=== PATIENT | female | born 1975 | race Caucasian/White ===

== ENCOUNTER 2016-12-13 22:49 | Emergency (ER) | payer SELFPAY ==
[~2016-12-13] VITALS: Wt 82.0 kg
[2016-12-14] MEDS ORDERED: ACETAMINOPHEN 500 MG TAB PO STA (00:21)
--- NOTE | 2016-12-14 01:30 | RADRPT ---
PROCEDURE: Obstetrical ultrasound, limited. CLINICAL INDICATION: Pelvic pain. TECHNIQUE: Multiple sonographic images of the pelvis were obtained using transabdominal technique . Images were obtained with hernandez scale and color Doppler. The images were reviewed on a PACS works tation. COMPARISON: No prior studies are available for comparison. FINDINGS: There is a single living intrauterine gestation with the fetus in a breech presentation. hear t tones of 154 beats per minute are identified. The placenta is anterior in location, grade 0. The re is normal amniotic fluid volume with the maximum vertical pocket measuring 4.1 cm. There is no e vidence of placenta previa or abruption. Measurements were made in order to determine age. The results are as follows: BPD =3.65 cm HC =13.20 cm AC =11.86 cm FL =2.32 cm. Estimated gestational age of approximately 17 weeks and 1 day. The estimated date of delivery is 05/23/2017. The EFW = 186 +/- 28 grams. Estimated weight percentage equals 68.5%. IMPRESSION: Single viable intrauterine gestation of approximately 17 weeks and 1 day, with an ultrasound ADDISON of 05/23/2017. .Mike Peña MD, MD Date Time Electronically viewed and signed by .Mike Peña MD, MD on 12/14/2016 01:30 .T/
[2016-12-14] MEDS ORDERED: TYL500 PO (01:51)
--- NOTE | 2016-12-14 01:55 | ERD ---
ER Documentation Chief Complaint Date/Time DATE: 12/14/16 TIME: 01:53 Chief Complaint LEFT SIDED TOOTH PAIN X1 WEEK/CURRENTLY 16WKS PREG HPI This is a 41-year-old female presents to the ER with left-sided tooth pain for the last week. Patient states that pain is pulsating in nature. She denies any facial pain, swelling, redness. She denies any fevers or chills. Patient is currently 16 weeks and is aware that because of the pain skin going to early labor. Patient states that she does have some pelvic pain however denies any vaginal bleeding. She denies any urinary frequency or dysuria. ROS 12 point review of systems was done, all negative except per HPI. Medications Home Meds Active Scripts Acetaminophen* (Tylenol*) 500 Mg Tab, 1000 MG PO Q8H Y for PAIN AND OR ELEVATED TEMP for 3 Days, TAB Prov:HELENA WHITEHEAD Knig 12/14/16 PMhx/Soc Hx Alcohol Use: No Hx Substance Use: No Hx Tobacco Use: No Smoking Status: Never smoker Physical Exam Vitals Vital Signs Date Time Temp Pulse Resp B/P Pulse Ox O2 Delivery O2 Flow Rate FiO2 12/13/16 23:00 97.9 92 18 125/74 98 Physical Exam GENERAL: The patient is well developed and appropriate for usual state of health , in no apparent distress. HEENT: Atraumatic. Patient has multiple dental caries. CHEST: Clear to auscultation bilaterally. There are no rales, wheezes or rhonchi. HEART: Regular rate and rhythm. No murmurs, clicks, rubs or gallops. NEURO: Alert and oriented. Results 24 hrs Current Medications Medications (Trade) Dose Ordered Sig/Bartolome Route PRN Reason Start Time Stop Time Status Last Admin Dose Admin Acetaminophen (Tylenol Tab) 1,000 mg ONCE STAT PO 12/14/16 00:21 12/14/16 00:24 DC 12/14/16 00:48 Procedures/MDM This is a 41-year-old female presents here with dental pain. At this time suspicion for dental abscess, Ricky's angina, deep space infection is low. Patient is afebrile and well-appearing. Patient will be sent home with Tylenol. She was told to follow-up with her dentist as soon as possible. I medical decision making shared with the patient she understands and agrees with plan Departure Diagnosis: Primary Impression: Pain, dental Condition: Stable Patient Instructions: Dental Pain Additional Instructions: Llame al doctor MAANA y martha vivienne GREGOR PARA DENTRO DE 1-2 HATCH.Dgale a la secretaria que nosotros le instruimos hacer esta gregor.Avise o llame si mock condicin se empeora antes de la gregor. Regresa aqui si peor o no mejor. HELENA WHITEHEAD Dec 14, 2016 01:55
== END 2016-12-14 02:20 | disposition left against medical advice (07) ==
LOC: FTE 22:49 → E/R 12-14 02:20
DX: O99.612 Diseases of the digestive system complicating pregnancy, second trimester (principal); K08.89 Other specified disorders of teeth and supporting structures; Z3A.17 17 weeks gestation of pregnancy
CPT/HCPCS: 76805

== ENCOUNTER 2017-05-25 07:54 | Inpatient (IN) | payer MEDICAID ==
[~2017-05-25] VITALS: Ht 147.3 cm; Wt 86.1 kg
[~2017-05-25 07:54] MED LIST: TYL500 PO
[2017-05-25] MEDS ORDERED: FER325 PO (08:10)
[2017-05-25] MEDS ORDERED: FOLI-49 PO (08:10)
[2017-05-25] MEDS ORDERED: PREN-93 PO (08:10)
[2017-05-25 08:11] VITALS: BP 126/74; PULSE 82; RESP 18; Ht 147.3 cm; Wt 86.1 kg
--- NOTE | 2017-05-25 09:31 | RADRPT ---
PROCEDURE: US OB. CLINICAL INDICATION: Uncertain size and dates. TECHNIQUE: Multiple sonographic images of the uterus were obtained. The images were revi ewed on a PACS workstation. COMPARISON: No prior studies are available for comparison. FINDINGS: There is a single live intrauterine gestation. heart rate is 142 beats per minute. Measurements were made in order to determine age. The results are as follows: BPD = 9.42 cm. HC = 33.71 cm. AC = 35.63 cm. FL = 7.99 cm. Estimated weight is 3821 +/- 573 grams. LMP growth percentile is 57 %. Menstrual age by ultrasound dates is 39 weeks 3 days. The estimated date of delivery is May 29, 2017. Position is cephalic and placenta is anterior grade II. There is no evidence for an abruption or gavin centa previa. IMPRESSION: 1. Single live intrauterine gestation of 39 weeks 3 days menstrual age by ultrasound dates. 2. The estimated date of delivery is May 29, 2017. RPTAT: QQ .Giovanny Cook MD, Date Time Electronically viewed and signed by .Giovanny Cook MD, on 05/25/2017 09:31 .R/
--- NOTE | 2017-05-25 09:43 | RADRPT ---
PROCEDURE: US OB biophysical profile. CLINICAL INDICATION: decreased movements, GDM TECHNIQUE: Multiple sonographic images of the pelvis were obtained. The images were reviewed on a PACS workstation. COMPARISON: 05/25/17 FINDINGS: There is a single viable intrauterine gestation. Cardiac activity is present with 139 beats per min dot. There is a vertex presentation. The placenta is anterior. There is no evidence of placental abruption. There is a normal amount of amniotic fluid with an DANIELLE = 10.9 cm. Biophysical profile: movement 2/2 tone 2/2. breathing 2/2 DANIELLE 2/2 Total 01/06 RPTAT: AA . IMPRESSION: Normal biophysical profile. . .Keyshawn Huynh MD, MD Date Time Electronically viewed and signed by .Keyshawn Huynh MD, on 05/25/2017 09:43 .S/
--- NOTE | 2017-05-25 10:20 | TRIAGE ---
OB Triage Datetime Report Generated by CPN: 05/25/2017 10:20 Datetime: 05/25/2017 09:53 Vaginal Exam Dilatation (cms): 0.0 Station: -3 Exam By: JITENDRA/ARSENIO Vaginal Bleeding: None Cervix, Consistency: Firm Cervix, Position: Posterior Datetime: 05/25/2017 09:50 Bedside Blood Glucose: 70 Datetime: 05/25/2017 09:00 Stage of : OB Triage Maternal Assessment Level of Consciousness: Fully Conscious Labor Evaluation Frequency: 4-6 Monitor Mode: External Duration (sec)2399: 80-140 Quality: Mild Resting Tone [place]: Relaxed Heart Rate FHR Baseline Rate: 135 Monitor Mode: External US Variability: Moderate 6-25 bpm Accelerations: 15X15 Decelerations: None Category: Category I Pain Assessment Pain Scale: 0 Pain Goal: 3 Membrane Status: Intact Vaginal Bleeding: None Datetime: 05/25/2017 08:07 Assessment Type: Triage Maternal Assessment Level of Consciousness: Fully Conscious DTR's/Clonus: DTRs 2+; No Clonus Headache: Denies Blurred Vision: No Respiratory Effort: Unlabored; Regular Rhythm; Equal Expansion Breath Sounds, Left: Clear and Equal Breath Sounds, Right: Clear and Equal Nausea/Vomiting: Denies RUQ Epigastric Pain: Denies Lower Extremities Edema: None Degree: None Upper Extremities Edema: None Degree: None Facial Edema: None Fall Risk Assessment History of Falling: (0) No Secondary Diagnosis: (0) No Ambulatory Aid: (0) Bedrest/Nurse Assist IV Therapy: (0) No Gait: (0) Normal/Bedrest/Immobile Mental Status: (0) Oriented to Own Ability Fall Score: 0 Fall Risk Score Definition: No Risk: No action required Datetime: 05/25/2017 08:05 Time of Arrival: 05/25/2017 07:50 EGA: 40.5 Arrived By: Ambulatory Arrived From: Home Movement: Present Contractions: Denies/Absent Rupture of Membranes: Denies Vaginal Bleeding: None Vaginal Discharge: Present Recent Sexual Intercouse: Denies Abdominal Trauma: Not Applicable Patient Complaints: None Provider Notified: [facility] Initial Plan: NST/BPP/EFW Datetime: 05/25/2017 08:04 Monitor Mode: External Monitor Mode: External US
[2017-05-25] MEDS ORDERED: CEFAZOLIN 2 GM/50 ML (PMX) 50 ML IV SCH (10:30)
[2017-05-25] MEDS ORDERED: CARBOPROST 250 MCG INJ IM PRN ×2 (10:30→16:00)
[2017-05-25] MEDS ORDERED: OXYTOCIN 30 UNITS/LR 500 ML IV PRN ×2 (10:30→16:00)
[2017-05-25] MEDS ORDERED: OXYTOCIN 30 UNITS/LR 500 ML IV SCH (10:30)
[2017-05-25] MEDS ORDERED: MISOPROSTOL 200 MCG TAB PR PRN ×2 (10:30→16:00)
[2017-05-25] MEDS ORDERED: METHYLERGONOVINE 0.2 MG INJ IM PRN ×2 (10:30→16:00)
--- NOTE | 2017-05-25 10:33 | CONS ---
Date/Time of Note Date/Time of Note DATE: 05/25/17 TIME: 10:23 Consultation Date/Type/Reason Admit Date/Time May 25, 2017 OB triage consult This patient is a 41 years old primigravida with estimated date of confinement of the May 20, 2017 who developed gestational diabetes mellitus during this and came to triage for further evaluation. On examination, she is fairly well-developed well-nourished somewhat overweight , patient Her vital signs are within normal limits with blood pressure 126/74, pulse rate 84 respiration 18 temperature 98 and oxygen saturation at room temperature 95. She does have occasional contraction, abdomen otherwise soft, vertex presentation, no CVA tenderness. On pelvic examination, cervix is closed thick and the head is high. membranes are intact. On reviewing her record, as I mentioned she does have gestational diabetes mellitus diet controlled. Her blood type is a positive ,hepatitis B surface antigen ,GBS, Chlamydia,, gonorrhea were all negative, HIV, RPR were nonreactive, and rubella she is immune, Reason for Consultation Laboratory Tests Test 05/25/17 09:50 Bedside Glucose 70mg/dL Constitutional: no complaints, No chills, No diaphoresis, No disoriented, No febrile, No improved, No other , No poor po, No requiring IVF, No requiring O2 Eyes: No discharge, No no complaints, No other, No pain, No redness, No visual change ENT: No bleeding, No congestion, No discharge, No dysphagia, No no complaints, No other, No pain, No sore throat Respiratory: No cough, No no complaints, No other, No pain, No pleuritic pain, No shortness of breath, No sputum, No wheezing Cardiovascular: No chest pain, No edema, No lightheadedness, No no complaints, No orthopenea, No other, No palpitations, No paroxysmal nocturnal dyspnea Gastrointestinal: No blood, No constipation, No decreased appetite, No diarrhea , No flatus, No nausea, No no complaints, No other, No pain, No passing stool, No vomiting Genitourinary: other (Pelvic examination was basically normal cervix was closed no evidence of rupture membranes), No bleeding, No discharge, No dysuria, No flank pain, No hematuria, No no complaints Skin: No bruising, No erythema, No laceration, No no complaints, No other, No pruritis, No rash, No skin lesions Neurologic: other (Knee-jerk reflexes), No confusion, No dizziness, No focal-weakness, No headache, No no complaints , No seizure, No syncope Endocrine: No dry skin, No no complaints, No other, No polydypsia, No polyuria , No temp intolerance Lymphatic: No adenopathy, No lymphadema, No no complaints, No other, No tender nodes Psychological: No anxiety, No confusion, No depression, No nl mood/affect, No no complaints, No other, No suicidal Immunologic: No immunodeficiency, No no complaints, No other, No pruritis, No rhinitis, No urticaria Additional Comments On ultrasound study:. The report is, a single viable intrauterine gestation with heart rates of 139 bpm, in vertex presentation placenta is anterior , her biophysical profile was reported 01/06 ,with amniotic fluid index of 10.9 the estimated weight is 3821 g 573 g . Social History Smoking Status: Never smoker Exam/Review of Systems Vital Signs Vitals Vital Signs Date Time Temp Pulse Resp B/P Pulse Ox O2 Delivery O2 Flow Rate FiO2 05/25/17 08:11 98.0 82 18 126/74 95 Room Air Results Results 24 hrs Laboratory Tests Test 05/25/17 09:50 Bedside Glucose 70 ARTEMIO JEAN-BAPTISTE MD May 25, 2017 10:33
[2017-05-25 11:13] LABS: BASOPHILS % 0.3 % (0.0-2.0); EOSINOPHILS # 0.3 10^3/ul (0.0-0.5); HEMATOCRIT 38.8 % (37.0-47.0); HEMOGLOBIN 13.4 g/dl (12.0-16.0); LYMPHOCYTES # 1.8 10^3/ul (0.8-2.9); MEAN CORPUSCULAR HGB CONC 34.5 g/dl (32.0-37.0); MEAN CORPUSCULAR VOLUME 89.8 fl (82.0-101.0); MEAN PLATELET VOLUME 10.5 fl (7.4-10.4); MONOCYTE # 0.6 10^3/ul (0.3-0.9); MONOCYTES % 5.8 % (0.0-11.0); NEUTROPHIL # 6.9 10^3/ul (1.6-7.5); NEUTROPHILS % 71.6 % (39.0-77.0); PLATELET COUNT 184 10^3/UL (140-415); RED BLOOD COUNT 4.32 10^6/ul (4.20-5.40); RED CELL DISTRIBUTION WIDTH 13.4 % (11.5-14.5); WHITE BLOOD COUNT 9.6 10^3/ul (4.8-10.8)
[2017-05-25] MEDS: LACTATED RINGER'S 1,000 ML IV SCH ×2 (11:17→11:34)
[2017-05-25 11:42] LABS: INR 0.94; PROTIME 12.7 Sec (11.9-14.9)
[2017-05-25] MEDS ORDERED: FENTAnyl 50 MCG/ML VIAL ONE (12:52)
[2017-05-25] MEDS ORDERED: morphine SULFATE/PF (10 MG/10 ML) INJ ONE (12:52)
[2017-05-25] MEDS ORDERED: PHENYLephrine (100 MCG/ML) 5ML SYG ONE (12:52)
[2017-05-25] MEDS ORDERED: CEFAZOLIN 1 GM INJ ONE (13:00)
[2017-05-25] MEDS ORDERED: ONDANSETRON 4 MG INJ ONE (13:11)
[2017-05-25] MEDS ORDERED: OXYTOCIN 30 UNITS/LR 500 ML IV ONE (13:57)
--- NOTE | 2017-05-25 14:19 | HP ---
Date/Time of Note Date/Time of Note DATE: 05/25/17 TIME: 14:02 OB - History Hx of Present Free Text/Dictation 41 years old female EDC May 20, 2017 admitted to [facility] at 40 weeks and 5 days for induction of labor, following consultation with laborist coroner/medical examiner patient decided to decline induction and trial of labor, requested delivery she was also informed regarding the complication of included but not limited to bowel and bladder injury infection hemorrhage wound hematoma, considering the patient's short stature being 5 feet or under and a small pelvis possibility of cephalopelvic disproportion explained patient decided against induction and trial of labor , requested delivery. Chief Complaint: 40 weeks 5 days admitted for induction of labor Estimated Due Date: May 20, 2017 : 1 Para: 0 Care: Limited Care Ultrasounds: Normal mid trimester US Obstetrical Complications: None Medical Complications: None Past Family/Social History * Past Medical, Surgical, Family and Obstetric Histories reviewed from chart. Rubella: immune RPR/VDRL: Negative GBS Status: Negative HBsAG: Negative OB Admission Exam Vital Signs Vital Signs Vital Signs Date Time Temp Pulse Resp B/P Pulse Ox O2 Delivery O2 Flow Rate FiO2 05/25/17 08:11 98.0 82 18 126/74 95 Room Air Physical Exam HEENT: WNL Heart: Rhythm Normal Lungs: Clear, Equal Abdomen: WNL Extremities: Normal Reflexes: Normal Cervical Dilatation: None Effacement: 0% Station: -3 Membranes: Intact Accelerations: Accelerations Present Decelerations: No Decelerations Varibility: Moderate Last 72 hourBlood Glucose Bedside Glucose - 72 Hours Test 05/25/17 09:50 Bedside Glucose 70mg/dL (70-220) Last 72 hours Lab Results CBC & BMP 05/25/17 10:00 OB Assessment/Plan Reason for admission: other (40 weeks 5 days admitted for induction of labor) Other plan: 41years old EDC May 20, 2017 admitted at 40 weeks and 5 days for induction of labor, patient decided trial of labor and induction after consulting with JERILYN Marcano I when he explained the process of trial of labor and possibility of during the trial of labor, patient declined induction requested delivery. STEFFI ALMANZA MD May 25, 2017 14:15
--- NOTE | 2017-05-25 14:25 | OPR ---
Operative Report Planned Procedure Free Text/Dictation 40 weeks 5 days declined trial of labor requested delivery Procedure date May 25, 2017 Procedure(s) Primary Performed by see signature line Medical Education Manager ARTEMIO MARTINEZ Anesthesiologist: SUNDEEP FERRER DO Pre-procedure diagnosis Same as above Anesthesia Type: spinal Post-Procedure Post-procedure diagnosis Same as above Findings Live Baby girl 8 and 9 baby weighed 7 lbs. 8 oz. Estimated Blood Loss: 600 - 700 mls Specimen(s) none Grafts/Implant(s) none Complication(s) none Pt Condition post procedure: stable Procedure Description Under satisfactory spinal anesthesia patient prepped and draped and placed in supine position. Pfannenstiel incision was made. Incision carried through the subcutaneous tissue. Fascia incised to the length of incision. Rectus muscle divided in midline. Peritoneum exposed and entered through a vertical incision. Exploration of abdomen revealed [gravid uterus at term normal-appearing tubes and ovaries.] Bladder flap was developed. Transverse incision was made in the lower segment of the uterus. Amniotic sac ruptured, [clear amniotic fluid noted. ] Live baby girl was delivered from unengaged vertex.Naso oropharyngeal suction was performed. Baby handed to the team for immediate attention. Patient received 20 units of Pitocin. Placenta delivered manually intact. Uterine cavity cleaned with a wet sponge and drainage established. Uterus closed in 2 layers using Monocryl #1 in continuous fashion. Peritoneal cavity irrigated with warm saline. Sponge needle instrument reported to be correct. Abdominal peritoneum closed with 2-0 chromic catgut continuously. Fascia closed with #1 PDS in a continuous fashion. Subcutaneous tissue irrigated with warm saline and approximated with 2-0 chromic catgut skin closed with N sorb. Estimated blood loss 6-700 cc]. Urine bag containing [200] mL of [clear] urine. Patient tolerated procedure well and transferred to recovery room in good condition. STEFFI ALMANZA MD May 25, 2017 14:25
[2017-05-25] MEDS ORDERED: KETOROLAC 30 MG INJ IV PRN (14:30)
[2017-05-25] MEDS ORDERED: NALOXONE (0.4 MG/ML) INJ IV PRN (14:30)
[2017-05-25] MEDS ORDERED: ONDANSETRON 4 MG INJ IV PRN (14:30)
[2017-05-25] MEDS ORDERED: NALBUPHINE HCL (10 MG/1 ML) INJ IV PRN (14:30)
[2017-05-25] MEDS ORDERED: HYDROmorphONE 0.5 MG/0.5 ML SYG IV PRN ×2 (14:30)
[2017-05-25] MEDS ORDERED: ZOLPIDEM 5 MG TAB PO PRN (14:30)
[2017-05-25] MEDS ORDERED: DIPHENHYDRAMINE 50 MG INJ IV PRN (14:30)
[2017-05-25] MEDS ORDERED: LANOLIN 7 GM TUBE TOP PRN (16:00)
[2017-05-25] MEDS ORDERED: HYDROCODONE/APAP (5/325) TAB PO PRN (16:00)
[2017-05-25] MEDS ORDERED: CEFAZOLIN 1 GM/50 ML (PMX) 50 ML IVPB SCH (16:00)
[2017-05-25] MEDS ORDERED: OXYCODONE/ACETAMINOPHEN (5/325) TAB PO PRN ×2 (16:00)
[2017-05-25 16:15] VITALS: BP 138/62; PULSE 75; RESP 20
[2017-05-25 16:30] VITALS: BP 123/69; PULSE 83; RESP 19
[2017-05-25 16:45] VITALS: BP 111/69; PULSE 80; RESP 18
[2017-05-25] MEDS: OXYTOCIN 30 UNITS/LR 500 ML IV SCH ×2 (19:23→20:55)
[2017-05-25 19:48] LABS: BARBITURATES Negative (NEGATIVE); BENZODIAZEPINES Negative (NEGATIVE); CANNABINOIDS Negative (NEGATIVE); COCAINE Negative (NEGATIVE); OPIATES Negative (NEGATIVE)
[2017-05-25 20:10] VITALS: BP 117/61; PULSE 81; RESP 19
[2017-05-26] MEDS: OXYTOCIN 30 UNITS/LR 500 ML IV SCH ×3 (00:02→07:27)
[2017-05-26 00:05] VITALS: BP 106/66; PULSE 85; RESP 18
[2017-05-26] MEDS: LACTATED RINGER'S 1,000 ML IV SCH ×2 (04:00→12:00)
[2017-05-26 04:05] VITALS: BP 105/64; PULSE 86; RESP 19
[2017-05-26 08:00] VITALS: BP 107/68; PULSE 88; RESP 18
[2017-05-26] MEDS: SENNA/DOCUSATE NA (8.6MG/50MG) TAB PO SCH ×2 (08:51→20:21)
[2017-05-26 08:54] LABS: BASOPHILS % 0.3 % (0.0-2.0); EOSINOPHILS # 0.3 10^3/ul (0.0-0.5); EOSINOPHILS % 2.8 % (0.0-7.0); HEMATOCRIT 35.5 % (37.0-47.0); HEMOGLOBIN 11.1 g/dl (12.0-16.0); LYMPHOCYTES # 1.2 10^3/ul (0.8-2.9); LYMPHOCYTES % 12.3 % (15.0-51.0); MEAN CORPUSCULAR HGB CONC 31.3 g/dl (32.0-37.0); MEAN CORPUSCULAR VOLUME 102.3 fl (82.0-101.0); MEAN PLATELET VOLUME 10.2 fl (7.4-10.4); MONOCYTE # 0.5 10^3/ul (0.3-0.9); MONOCYTES % 5.2 % (0.0-11.0); NEUTROPHIL # 7.4 10^3/ul (1.6-7.5); NEUTROPHILS % 79.2 % (39.0-77.0); PLATELET COUNT 132 10^3/UL (140-415); RED BLOOD COUNT 3.47 10^6/ul (4.20-5.40); RED CELL DISTRIBUTION WIDTH 13.5 % (11.5-14.5); WHITE BLOOD COUNT 9.3 10^3/ul (4.8-10.8)
--- NOTE | 2017-05-26 09:49 | QN ---
Documentation Comment Post day 1 Afebrile Vital signs are stable Abdomen soft bowel sounds present, patient able to pass, flatus, ambulation encouraged, extremities normal. STEFFI ALMANZA MD May 26, 2017 09:49
[2017-05-26] MEDS: HYDROCODONE/APAP (5/325) TAB PO PRN (14:00)
[2017-05-26 15:49] VITALS: BP 112/70; PULSE 88; RESP 18
[2017-05-26] MEDS: IBUPROFEN 600 MG TAB PO SCH ×2 (17:26→23:35)
[2017-05-26 19:20] VITALS: BP 119/61; PULSE 76; RESP 20
[2017-05-27 04:00] VITALS: BP 108/65; PULSE 80; RESP 18
[2017-05-27] MEDS: IBUPROFEN 600 MG TAB PO SCH ×3 (05:43→17:33)
[2017-05-27 08:00] VITALS: BP 100/60; PULSE 72; RESP 18
[2017-05-27] MEDS: SENNA/DOCUSATE NA (8.6MG/50MG) TAB PO SCH ×2 (08:05→21:00)
[2017-05-27] MEDS: HYDROCODONE/APAP (5/325) TAB PO PRN (08:06)
--- NOTE | 2017-05-27 09:51 | QN ---
Documentation Comment Post day 2 Afebrile Vital signs are stable Abdomen soft, good bowel sounds, incision dry, no bowel movement. Ambulation recommended. Enema ordered. None of possible a.m. discharge discussed . STEFFI ALMANZA MD May 27, 2017 09:51
--- NOTE | 2017-05-27 15:09 | NSTRPT ---
NST Information Datetime Report Generated by CPN: 05/27/2017 15:09 Datetime: 05/22/2017 08:53 NST Information EGA: 40.2 Test Number: 10 Time on Monitor: 05/22/2017 09:06 Time off Monitor: 05/22/2017 09:37 NST Duration (Min): 31 Reason for NST: Diabetes Mellitus; Other Reason for NST Other: A1DM Test and Monitor Explained: Monitor Explained; Test Explained; Verbalized Understanding Pulse: 75 Resp: 18 SBP: 101 DBP: 52 Test Evaluation NST Interventions: Reposition Patient Patient States Movement: Present Contraction Frequency: occasional, mild FHR Baseline : 150 Variability: Moderate 6-25bpm Accelerations: 15X15 Decelerations: None FHR Category: Category I NST Results: Reactive Comments: PT TO U/S, DANIELLE 12.6cm, cephalic FBS 85. Electronically Signed By E-Signature: with User ID: [id number] Datetime: 05/19/2017 09:00 NST Information EGA: 39.6 NST Duration (Min): 26 Datetime: 05/15/2017 09:15 NST Information EGA: 39.2 NST Duration (Min): 39 Datetime: 05/12/2017 09:07 NST Information EGA: 38.6 NST Duration (Min): 34 Datetime: 05/08/2017 09:49 NST Information EGA: 38.2 NST Duration (Min): 50 Datetime: 05/05/2017 08:05 NST Information EGA: 37.6 NST Duration (Min): 37 Datetime: 05/01/2017 08:16 NST Information EGA: 37.2 NST Duration (Min): 27 Datetime: 04/28/2017 08:12 NST Information EGA: 36.6 NST Duration (Min): 29 Datetime: 04/22/2017 13:05 NST Information EGA: 36.0 NST Duration (Min): 42 Datetime: 04/20/2017 14:05 NST Information EGA: 35.5 Datetime: 04/20/2017 13:45 NST Duration (Min): 23
[2017-05-27 16:00] VITALS: BP 115/65; RESP 16
[2017-05-27 19:45] VITALS: BP 117/73; PULSE 82; RESP 19
[2017-05-28] MEDS: IBUPROFEN 600 MG TAB PO SCH ×3 (00:43→12:45)
[2017-05-28 04:00] VITALS: BP 119/69; PULSE 75; RESP 19
[2017-05-28 07:45] VITALS: BP 107/79; PULSE 78; RESP 20
[2017-05-28] MEDS: SENNA/DOCUSATE NA (8.6MG/50MG) TAB PO SCH (09:00)
[2017-05-28] MEDS ORDERED: DIPHTH/TET/ACEL PERTUSS (ADULT) 0.5 ML VIAL IM* ONE (09:00)
--- NOTE | 2017-05-28 11:51 | PD.PPDC ---
BOTTLE HOUSE QUALITY CONTROL TECHNICIAN Discharge Instruction Condition Patient Condition: Good Activity/Restrictions Activity: Normal Activity May Shower Wound/Drain Care Instructions Wound/Drain Care Instructions: Remove Steri Strips in 1 week Follow-up Follow-up with Physician: 1 Provider Information: Post day 3, postop wound care instructions given recommended to make appointment to be seen at the clinic in 1 week Return to clinic for LOAD DISPATCHER Instructions: Fever greater than 101 Chills Worsening abdominal pain Excessive Vaginal Bleeding More than 2 pads per hour Unable to tolerate diet OB Instructions: Breast Tenderness Depression Blurried Vision Headache Surgical Instructions: Incisional Drainage Incisional Redness STEFFI ALMANZA MD May 28, 2017 11:51
--- NOTE | 2017-05-28 11:55 | DS ---
Date/Time of Note Date/Time of Note DATE: 05/28/17 TIME: 11:53 Discharge Summary Admission/Discharge Info Admit Date/Time May 25, 2017 at 10:10 Discharge Date/Time May 28, 2017 at 11:50 AM Discharge Diagnosis Post primary day 3 Patient Condition: Good Procedures Primary Hx of Present Illness Term failure to progress declined further trial of labor Hospital Course Satisfactory recovery uneventful Home Meds Reported Medications Ferrous Sulfate* (Ferrous Sulfate*) 325 Mg Tabec, 325 MG PO DAILY, TAB 05/25/17 Folic Acid* (Folic Acid*) 1 Mg Tablet, 1 MG PO DAILY, TAB 05/25/17 Vit No.124/Iron/FA ( Vitamin Tablet) 1 Each Tablet, 1 EACH PO DAILY, TAB 05/25/17 Discontinued Scripts Acetaminophen* (Tylenol*) 500 Mg Tab, 1000 MG PO Q8H Y for PAIN AND OR ELEVATED TEMP for 3 Days, TAB Prov:HELENA WHITEHEAD 12/14/16 Follow-up Plan Post instructions given recommended to make appointment to be seen at the clinic in 1 week Primary Care Provider Care Physician No Primary Time spent on discharge: < 30 minutes STEFFI ALMANZA MD May 28, 2017 11:55
== END 2017-05-28 14:40 | disposition home or self-care (01) | DRG 766 ==
LOC: OBT 07:54 → L-D 07:54 → OBT 10:16 → L-D 12:37 → PP1 16:43
PROVIDERS: ADMIT Obstetrics & Gynecology; ATTEND Obstetrics & Gynecology
PROC: 10D00Z1 Extraction of Products of Conception, Low, Open Approach (ICD-10-PCS; principal; 2017-05-25)
DX: O48.0 Post-term pregnancy (principal); O24.420 Gestational diabetes mellitus in childbirth, diet controlled; Z37.0 Single live birth; Z3A.40 40 weeks gestation of pregnancy
CPT/HCPCS: 76815; 76818; 80307; 82962; 85025; 85610; 85730; 86592; 86850; 86900; 86901; 90715; 94760; 99464; G0463; J0690; J1200; J1885; J2274; J2370; J2405; J2590; J3010; J7120